=== PATIENT | female | born 1960 | race Caucasian/White ===

== ENCOUNTER 2016-08-04 06:26 | Day surgery (SDC) | payer BC ==
[~2016-08-04] VITALS: Ht 149.9 cm; Wt 70.0 kg
[~2016-08-04 06:26] MED LIST: LACTATED RINGERS 1,000 ML IV SCH; SODIUM CHLORIDE FLUSH 3 ML SYR IV PRN
[2016-08-04 06:44] VITALS: BP 140/72
[2016-08-04] MEDS ORDERED: MINERAL OIL 25 ML BTL TOP ONE (06:48)
[2016-08-04] MEDS ORDERED: ALFENTANIL 500 MCG/ML (ALFENTA) 5 ML AMP IV ONE ×2 (07:13)
[2016-08-04] MEDS ORDERED: PROPOFOL 20 ML IV ONE (07:13)
[2016-08-04] MEDS ORDERED: MIDAZOLAM 2 MG/2 ML (VERSED) VIAL ONE (07:14)
[2016-08-04 07:48] VITALS: BP_SYST 129; BP_SYST 140; BP_DIAS 72; BP_DIAS 74
[2016-08-04 08:11] VITALS: BP 128/71
== END 2016-08-04 08:17 | disposition home or self-care (01) ==
LOC: ASC 06:26
PROVIDERS: ATTEND Surgery
DX: Z12.11 Encounter for screening for malignant neoplasm of colon (principal); Z86.010 Personal history of colon polyps; K57.30 Diverticulosis of large intestine without perforation or abscess without bleeding
CPT/HCPCS: 45378; J2250; J7120